=== PATIENT | male | born 1965 | race Two or more races ===

== ENCOUNTER 2017-05-23 19:25 | Emergency (ER) | payer MEDICARE, SELFPAY ==
[~2017-05-23] VITALS: Ht 162.6 cm; Wt 83.3 kg
[2017-05-23] MEDS ORDERED: SODIUM CHLORIDE 0.9% 1,000ML IVBOLUS ONE (20:00)
[2017-05-23] MEDS ORDERED: FAMOTIDINE 20 MG/2 ML IVP ONE (20:00)
[2017-05-23] MEDS ORDERED: SODIUM CHLORIDE FLUSH 10ML SYR IVF ONE (20:00)
[2017-05-23] MEDS ORDERED: ONDANSETRON 2MG/ML, 2ML IVPush ONE (20:00)
[2017-05-23 20:23] LABS: BASOPHILS # (AUTO) 0.02 x10^3/uL (0-0.1); BASOPHILS % (AUTO) 0 % (0-1); EOSINOPHILS # (AUTO) 0.07 x10^3/uL (0-0.4); EOSINOPHILS % (AUTO) 1 % (1-7); LYMPHOCYTES # (AUTO) 1.49 x10^3/uL (1-3.4); LYMPHOCYTES % (AUTO) 27 % (22-44); MD NO; MEAN CORPUSCULAR HEMOGLOBIN 31.1 pg (27.5-34.5); MEAN CORPUSCULAR HGB CONC 33.3 g/dL (33.2-36.2); MEAN CORPUSCULAR VOLUME 93.4 fL (81-97); MEAN PLATELET VOLUME 7.6 fL (7.4-10.4); MONOCYTES # (AUTO) 0.59 x10^3/uL (0.2-0.8); MONOCYTES % (AUTO) 11 % (2-9); NEUTROPHILS # (AUTO) 3.43 x10^3/uL (1.8-6.8); NEUTROPHILS % (AUTO) 61 % (42-75); PLATELET COUNT 319 x10^3/uL (130-400); RED BLOOD COUNT 4.84 x10^6/uL (4.38-5.82); RED CELL DISTRIBUTION WIDTH 14.1 % (9.4-14.8)
[2017-05-23 20:31] LABS: ALANINE AMINOTRANSFERASE 53 U/L (12-78); ALBUMIN 3.8 g/dL (3.4-5.0); ANION GAP 8 mmol/L (5-15); CALCIUM 8.2 mg/dL (8.5-10.1); CHLORIDE 108 mmol/L (98-107); CREATININE 0.79 mg/dL (0.7-1.3)
[2017-05-23 20:33] LABS: ALKALINE PHOSPHATASE 93 U/L (45-117); BILIRUBIN,TOTAL 0.6 mg/dL (0.2-1.0); TOTAL PROTEIN 7.7 g/dL (6.4-8.2)
[2017-05-23] MEDS ORDERED: ONDANSETRON 2MG/ML, 2ML ONE (20:47)
[2017-05-23] MEDS ORDERED: FAMOTIDINE 20 MG/2 ML ONE (20:48)
[2017-05-23 20:54] LABS: MICROSCOPIC NOT IND
[2017-05-23 20:58] LABS: CULTURE INDICATED? NO
[2017-05-23 21:45] VITALS: BP 126/84
== END 2017-05-23 22:08 | disposition home or self-care (01) ==
LOC: ED 22:00
DX: R10.84 Generalized abdominal pain (principal); R19.7 Diarrhea, unspecified
CPT/HCPCS: 36415; 74021; 80053; 81003; 83690; 85025; 96361; 96374; 96375; 99285; J2405; J7030; S0028

== ENCOUNTER 2017-05-24 13:02 | Emergency (ER) | payer MEDICARE ==
[~2017-05-24] VITALS: Ht 167.6 cm; Wt 83.2 kg
[2017-05-24 14:10] VITALS: BP 112/68
[2017-05-24] MEDS ORDERED: SODIUM CHLORIDE 0.9% 1,000ML IVBOLUS ONE (15:00)
[2017-05-24] MEDS ORDERED: FAMOTIDINE 20 MG/2 ML IVP ONE (15:00)
[2017-05-24] MEDS ORDERED: ONDANSETRON 2MG/ML, 2ML IVPush ONE (15:00)
[2017-05-24] MEDS ORDERED: SODIUM CHLORIDE FLUSH 10ML SYR IVF ONE (15:00)
[2017-05-24] MEDS ORDERED: MORPHINE SULFATE 4 MG/ML, 1ML IVPush PRN (15:00)
[2017-05-24 15:12] LABS: MICROSCOPIC NOT IND
[2017-05-24 15:15] LABS: CULTURE INDICATED? NO
[2017-05-24 15:16] LABS: ALBUMIN 3.5 g/dL (3.4-5.0); ANION GAP 7 mmol/L (5-15); CALCIUM 8.4 mg/dL (8.5-10.1); CHLORIDE 109 mmol/L (98-107)
[2017-05-24 15:17] LABS: BASOPHILS # (AUTO) 0.01 x10^3/uL (0-0.1); BASOPHILS % (AUTO) 0 % (0-1); EOSINOPHILS # (AUTO) 0.08 x10^3/uL (0-0.4); EOSINOPHILS % (AUTO) 2 % (1-7); LYMPHOCYTES # (AUTO) 1.24 x10^3/uL (1-3.4); LYMPHOCYTES % (AUTO) 28 % (22-44); MD NO; MEAN CORPUSCULAR HEMOGLOBIN 31.1 pg (27.5-34.5); MEAN CORPUSCULAR HGB CONC 33.1 g/dL (33.2-36.2); MEAN CORPUSCULAR VOLUME 94.2 fL (81-97); MEAN PLATELET VOLUME 7.1 fL (7.4-10.4); MONOCYTES # (AUTO) 0.47 x10^3/uL (0.2-0.8); MONOCYTES % (AUTO) 11 % (2-9); NEUTROPHILS % (AUTO) 59 % (42-75); PLATELET COUNT 294 x10^3/uL (130-400); RED BLOOD COUNT 4.54 x10^6/uL (4.38-5.82); RED CELL DISTRIBUTION WIDTH 13.9 % (9.4-14.8)
[2017-05-24] MEDS ORDERED: MORPHINE SULFATE 4 MG/ML, 1ML ONE (15:19)
[2017-05-24] MEDS ORDERED: ONDANSETRON 2MG/ML, 2ML ONE (15:19)
[2017-05-24] MEDS ORDERED: FAMOTIDINE 20 MG/2 ML ONE (15:19)
[2017-05-24 15:21] LABS: ALANINE AMINOTRANSFERASE 49 U/L (12-78); ALKALINE PHOSPHATASE 83 U/L (45-117); BILIRUBIN,TOTAL 0.5 mg/dL (0.2-1.0); CREATININE 0.83 mg/dL (0.7-1.3); TOTAL PROTEIN 6.9 g/dL (6.4-8.2)
[2017-05-24 15:48] LABS: CLOSTRIDIUM DIFFICILE ANTIGEN NEGATIVE; CLOSTRIDIUM DIFFICILE TOXIN NEGATIVE (Negative)
== END 2017-05-24 16:55 | disposition home or self-care (01) ==
LOC: ED 16:09
DX: K52.9 Noninfective gastroenteritis and colitis, unspecified (principal)
CPT/HCPCS: 36415; 80053; 81003; 83690; 85025; 87324; 89055; 93005; 96374; 96375; 99285; J2405; J7030; S0028

== ENCOUNTER 2019-09-16 16:54 | Emergency (ER) | payer MEDICARE, MEDICAID ==
[~2019-09-16] VITALS: Ht 162.6 cm; Wt 82.0 kg
[~2019-09-16 16:54] MED LIST: DOCU100C33 PO; NAPR-685 PO; OMEP-110 PO; PROC10TA2 PO; TRAZ-175 PO
--- NOTE | 2019-09-16 17:27 | NUR ---
THIS IS A 53 YO MALE COMING IN WITH C/O DIFFUSE ALL OVER ABD PAIN/CRAMPING IN ALL QUADRANTS "IT'S BEEN HAPPENING FOR TWO YEARS SINCE I HAD FOOD POISONING, LOTS OF COMPLICATIONS, MORE AND MORE COMPLICATIONS. I HAS HARD TIME GOING PEE AND POOP, IT HURTS TO PEE AND HAVING HARD TIME POOPING". LAST BM 0200 TODAY. SPO2 AND BP MONITORING IN PLACE, VENKATA, CHARISMA AT THIS TIME. CALL LIGHT IN REACH.
[2019-09-16] MEDS ORDERED: SODIUM CHLORIDE FLUSH 10ML SYR IVF ONE (17:30)
[2019-09-16] MEDS ORDERED: ONDANSETRON 2MG/ML, 2ML ONE (17:30)
[2019-09-16] MEDS ORDERED: ONDANSETRON 2MG/ML, 2ML IVPush ONE (17:30)
--- NOTE | 2019-09-16 17:35 | NUR ---
PATIENT MEDICATED PER EMAR. PIV PLACED, LABS DRAWN. PATIENT GIVEN URINAL TO USE FOR UA
[2019-09-16 17:58] LABS: BASOPHILS # (AUTO) 0.03 x10^3/uL (0-0.1); BASOPHILS % (AUTO) 0 % (0-1); EOSINOPHILS # (AUTO) 0.19 x10^3/uL (0-0.4); EOSINOPHILS % (AUTO) 3 % (1-7); LYMPHOCYTES # (AUTO) 2.41 x10^3/uL (1-3.4); LYMPHOCYTES % (AUTO) 32 % (22-44); MD NO; MEAN CORPUSCULAR HEMOGLOBIN 31.6 pg (27.5-34.5); MEAN CORPUSCULAR HGB CONC 33.3 g/dL (33.2-36.2); MEAN CORPUSCULAR VOLUME 94.6 fL (81-97); MEAN PLATELET VOLUME 8.2 fL (7.4-10.4); MONOCYTES # (AUTO) 0.49 x10^3/uL (0.2-0.8); MONOCYTES % (AUTO) 7 % (2-9); NEUTROPHILS # (AUTO) 4.36 x10^3/uL (1.8-6.8); NEUTROPHILS % (AUTO) 58 % (42-75); PLATELET COUNT 307 x10^3/uL (130-400); RED BLOOD COUNT 4.63 x10^6/uL (4.38-5.82); RED CELL DISTRIBUTION WIDTH 14.4 % (9.4-14.8)
[2019-09-16 18:09] LABS: ALANINE AMINOTRANSFERASE 52 U/L (12-78); ALBUMIN 3.5 g/dL (3.4-5.0); ANION GAP 7 mmol/L (5-15); CALCIUM 8.6 mg/dL (8.5-10.1); CHLORIDE 109 mmol/L (98-107); CREATININE 0.99 mg/dL (0.7-1.3)
[2019-09-16 18:11] LABS: ALKALINE PHOSPHATASE 113 U/L (45-117); BILIRUBIN,TOTAL 0.4 mg/dL (0.2-1.0); TOTAL PROTEIN 7.2 g/dL (6.4-8.2)
--- NOTE | 2019-09-16 18:30 | NUR ---
PATIENT TO CT
[2019-09-16] MEDS ORDERED: PROMETHAZINE 25 MG/ML, 1ML ONE ×2 (18:53)
--- NOTE | 2019-09-16 18:57 | NUR ---
PATIENT MEDICATED PER EMAR FOR RECURRENT N/V
[2019-09-16] MEDS ORDERED: PROMETHAZINE 25 MG/ML, 1ML IM ONE (19:00)
--- NOTE | 2019-09-16 19:54 | NUR ---
UA COLLECTED AND SENT TO LAB
[2019-09-16 20:02] VITALS: BP 143/91
[2019-09-16 20:05] LABS: MICROSCOPIC NOT IND
--- NOTE | 2019-09-16 21:16 | NUR ---
PATIENT READY FOR DISCHARGE. REFUSING TO GET UP AND OUT OF GURNEY TO GET DRESSED. SECURITY CALLED. TAXI EN ROUTE
[2019-09-16] MEDS ORDERED: OMNIPAQUE 350 MG/ML, 100ML BOTTLE ONE (21:59)
== END 2019-09-16 22:45 | disposition home or self-care (01) ==
LOC: ED 22:37
DX: R10.84 Generalized abdominal pain (principal); R11.2 Nausea with vomiting, unspecified; I10 Essential (primary) hypertension; F17.210 Nicotine dependence, cigarettes, uncomplicated
CPT/HCPCS: 36415; 74177; 80053; 81003; 83690; 85025; 96372; 96374; 99285; J2405; J2550; Q9967

== ENCOUNTER 2019-09-20 09:51 | Emergency (ER) | payer MEDICARE ==
[~2019-09-20] VITALS: Ht 162.6 cm; Wt 90.0 kg
[2019-09-20 09:53] VITALS: BP 129/87
--- NOTE | 2019-09-20 11:44 | NUR ---
Patient given discharge instructions and they have confirmed that they understand the instructions. Patient ambulatory with steady gait.
== END 2019-09-20 11:45 | disposition home or self-care (01) ==
LOC: ED 10:51
DX: I80.8 Phlebitis and thrombophlebitis of other sites (principal); I10 Essential (primary) hypertension
CPT/HCPCS: 99282

== ENCOUNTER 2019-09-22 10:46 | Emergency (ER) | payer MEDICARE, MEDICAID ==
[~2019-09-22] VITALS: Ht 162.6 cm; Wt 82.0 kg
[2019-09-22 10:51] VITALS: BP 142/100
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
== END 2019-09-22 12:07 | disposition home or self-care (01) ==
LOC: ED 11:21
DX: S50.12XA Contusion of left forearm, initial encounter (principal); I10 Essential (primary) hypertension; X58.XXXA Exposure to other specified factors, initial encounter; Y93.89 Activity, other specified; Y92.89 Other specified places as the place of occurrence of the external cause; Y99.8 Other external cause status
CPT/HCPCS: 99281

== ENCOUNTER 2019-11-14 14:53 | Emergency (ER) | payer MEDICAID, MEDICARE ==
[~2019-11-14] VITALS: Ht 162.6 cm; Wt 81.8 kg
[2019-11-14 14:55] VITALS: BP 165/97
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
[2019-11-14] MEDS ORDERED: CEPHALEXIN 500 MG CAPSULE PO ONE (15:30)
[2019-11-14] MEDS ORDERED: SULFAMETH./TRIMETHOPRIM DS 800MG/160MG TABLET PO ONE (15:30)
[2019-11-14] MEDS ORDERED: SULFAMETH./TRIMETHOPRIM DS 800MG/160MG TABLET ONE (15:33)
[2019-11-14] MEDS ORDERED: CEPHALEXIN 500 MG CAPSULE ONE (15:33)
== END 2019-11-14 16:01 | disposition home or self-care (01) ==
LOC: ED 15:30
DX: L03.115 Cellulitis of right lower limb (principal); I10 Essential (primary) hypertension; Z87.891 Personal history of nicotine dependence
CPT/HCPCS: 99283

== ENCOUNTER 2019-11-21 16:09 | Emergency (ER) | payer MEDICARE, MEDICAID ==
--- NOTE | 2019-11-21 17:41 | NUR ---
SOFTWARE WRITER: PT WALKED BACK FROM LOBBY TO ROOM AT THIS TIME.
[2019-11-21] MEDS ORDERED: NEOSPORIN OINT. PKT 1 PACKET ONE (18:13)
--- NOTE | 2019-11-21 18:46 | NUR ---
REPORT TO COSMO
[2019-11-21 19:09] VITALS: BP 152/88
== END 2019-11-21 19:11 | disposition home or self-care (01) ==
LOC: ED 18:26
DX: S80.811A Abrasion, right lower leg, initial encounter (principal); L03.115 Cellulitis of right lower limb; I10 Essential (primary) hypertension; Z87.891 Personal history of nicotine dependence; X58.XXXA Exposure to other specified factors, initial encounter; Y93.89 Activity, other specified; Y92.488 Other paved roadways as the place of occurrence of the external cause; Y99.8 Other external cause status
CPT/HCPCS: 99283

== ENCOUNTER 2019-12-02 12:25 | Emergency (ER) | payer MEDICARE, MEDICAID ==
[~2019-12-02] VITALS: Ht 162.6 cm; Wt 82.0 kg
--- NOTE | 2019-12-02 13:42 | NUR ---
TO IVON FROM LOBBY
[2019-12-02] MEDS ORDERED: ONDANSETRON 2MG/ML, 2ML ONE (13:45)
[2019-12-02] MEDS ORDERED: ONDANSETRON ODT 4 MG ONE (13:46)
[2019-12-02] MEDS ORDERED: ONDANSETRON ODT 4 MG PO PRN (14:00)
[2019-12-02 14:04] LABS: BASOPHILS # (AUTO) 0.04 x10^3/uL (0-0.1); BASOPHILS % (AUTO) 1 % (0-1); EOSINOPHILS # (AUTO) 0.12 x10^3/uL (0-0.4); EOSINOPHILS % (AUTO) 2 % (1-7); LYMPHOCYTES # (AUTO) 2.11 x10^3/uL (1-3.4); LYMPHOCYTES % (AUTO) 32 % (22-44); MD NO; MEAN CORPUSCULAR HEMOGLOBIN 32.2 pg (27.5-34.5); MEAN CORPUSCULAR HGB CONC 33.8 g/dL (33.2-36.2); MEAN CORPUSCULAR VOLUME 95.3 fL (81-97); MEAN PLATELET VOLUME 7.4 fL (7.4-10.4); MONOCYTES # (AUTO) 0.41 x10^3/uL (0.2-0.8); MONOCYTES % (AUTO) 6 % (2-9); NEUTROPHILS # (AUTO) 3.85 x10^3/uL (1.8-6.8); NEUTROPHILS % (AUTO) 59 % (42-75); PLATELET COUNT 298 x10^3/uL (130-400); RED CELL DISTRIBUTION WIDTH 14.3 % (9.4-14.8)
[2019-12-02 14:10] LABS: ALANINE AMINOTRANSFERASE 54 U/L (12-78); ALBUMIN 3.5 g/dL (3.4-5.0); ANION GAP 6 mmol/L (5-15); CALCIUM 8.3 mg/dL (8.5-10.1); CHLORIDE 109 mmol/L (98-107); CREATININE 0.83 mg/dL (0.7-1.3)
[2019-12-02 14:12] LABS: ALKALINE PHOSPHATASE 90 U/L (45-117); BILIRUBIN,TOTAL 0.6 mg/dL (0.2-1.0); TOTAL PROTEIN 7.1 g/dL (6.4-8.2)
[2019-12-02 14:49] VITALS: BP 124/74
== END 2019-12-02 15:13 | disposition home or self-care (01) ==
LOC: ED 15:12
DX: R10.84 Generalized abdominal pain (principal); R11.2 Nausea with vomiting, unspecified; R19.7 Diarrhea, unspecified
CPT/HCPCS: 36415; 80053; 83690; 85025; 99283

== ENCOUNTER 2019-12-11 16:18 | Emergency (ER) | payer MEDICAID, MEDICARE ==
[~2019-12-11] VITALS: Ht 162.6 cm; Wt 82.0 kg
[2019-12-11 16:28] VITALS: BP 152/101
--- NOTE | 2019-12-11 17:07 | NUR ---
PA STUDENT AT BEDSIDE EVALUATING AT THIS TIME.
--- NOTE | 2019-12-11 18:50 | NUR ---
REPORT GIVEN TO GEE HERNANDEZ.
== END 2019-12-11 19:23 | disposition home or self-care (01) ==
LOC: ED 18:11
DX: L03.115 Cellulitis of right lower limb (principal); I10 Essential (primary) hypertension; G89.29 Other chronic pain; Z87.891 Personal history of nicotine dependence
CPT/HCPCS: 99284

== ENCOUNTER 2020-01-01 08:37 | Emergency (ER) | payer MEDICARE, MEDICAID ==
[~2020-01-01] VITALS: Ht 162.6 cm; Wt 82.0 kg
[2020-01-01 09:04] VITALS: BP 144/102
--- NOTE | 2020-01-01 09:51 | NUR ---
PT CAME IN CO OF AN OLD WOUND THAT APPEARS TO BE ALMOST FULLY HEALED. AREA IS ABOUT THE SIZE OF A SILVER DOLLAR AND IS PINK. PT STATES ITS STILL VERY PAINFUL. PT WAS TREATED FOR CELLULITIS 2 WEEKS AGO AND FINISHED COURSE OF ABX.
[2020-01-01] MEDS ORDERED: NEOSPORIN OINT. PKT 1 PACKET ONE (09:58)
== END 2020-01-01 10:18 | disposition home or self-care (01) ==
LOC: EDSEX 10:08 → ED 10:08
DX: S80.811A Abrasion, right lower leg, initial encounter (principal); I10 Essential (primary) hypertension; Z87.891 Personal history of nicotine dependence; X58.XXXA Exposure to other specified factors, initial encounter; Y93.89 Activity, other specified; Y92.89 Other specified places as the place of occurrence of the external cause; Y99.8 Other external cause status
CPT/HCPCS: 99282

== ENCOUNTER 2020-01-28 11:22 | Emergency (ER) | payer MEDICARE, MEDICAID ==
[~2020-01-28] VITALS: Ht 167.6 cm; Wt 82.0 kg
[2020-01-28 11:24] VITALS: BP 152/97
--- NOTE | 2020-01-28 12:03 | NUR ---
LABS BEING DRAWN
[2020-01-28 12:25] LABS: BASOPHILS % (AUTO) 0 % (0-1); EOSINOPHILS % (AUTO) 2 % (1-7); LYMPHOCYTES % (AUTO) 34 % (22-44); MONOCYTES % (AUTO) 6 % (2-9); NEUTROPHILS % (AUTO) 58 % (42-75); PLATELET COUNT 320 x10^3/uL (130-400)
--- NOTE | 2020-01-28 12:26 | NUR ---
US AT BEDSIDE
[2020-01-28 12:27] LABS: ALANINE AMINOTRANSFERASE 65 U/L (12-78); ALBUMIN 3.8 g/dL (3.4-5.0); ANION GAP 5 mmol/L (5-15); CHLORIDE 107 mmol/L (98-107)
[2020-01-28 12:28] LABS: ALKALINE PHOSPHATASE 103 U/L (45-117); BILIRUBIN,TOTAL 0.6 mg/dL (0.2-1.0); MD NO; TOTAL PROTEIN 7.2 g/dL (6.4-8.2)
[2020-01-29 09:38] LABS: CREATININE 0.82 mg/dL (0.7-1.3); RED BLOOD COUNT 4.76 x10^6/uL (4.38-5.82)
[2020-01-29 09:39] LABS: MEAN CORPUSCULAR HEMOGLOBIN 31.7 pg (27.5-34.5); MEAN CORPUSCULAR HGB CONC 33.9 g/dL (33.2-36.2); RED CELL DISTRIBUTION WIDTH 13.8 % (9.4-14.8)
== END 2020-01-28 13:19 | disposition home or self-care (01) ==
LOC: EDSEX 11:22 → ED 12:35
DX: M79.661 Pain in right lower leg (principal); M54.9 Dorsalgia, unspecified
CPT/HCPCS: 36415; 80053; 85025; 99285

== ENCOUNTER 2020-06-17 09:00 | Emergency (ER) | payer MEDICARE, MEDICAID ==
[~2020-06-17] VITALS: Ht 162.6 cm; Wt 82.0 kg
--- NOTE | 2020-06-17 09:12 | NUR ---
product applications scientist: attempted to call pt for triage, no answer in lobby
[2020-06-17 09:14] VITALS: BP 160/102
--- NOTE | 2020-06-17 09:28 | NUR ---
rn neurology: pt refused to step on scale in triage, pt argumentative with staff, pt swearing
--- NOTE | 2020-06-17 09:30 | NUR ---
home performance laborer: pt repeatedly removing mask in triage after education regarding wearing of mask. pt states "you need to respect me"
--- NOTE | 2020-06-17 09:39 | NUR ---
PT LAYING ON FORREST TROTTER/VENKATA. AT . CALL LIGHT WITHIN REACH
--- NOTE | 2020-06-17 09:54 | NUR ---
Patient given discharge instructions and they have confirmed that they understand the instructions. Patient ambulatory with steady gait.
== END 2020-06-17 09:55 | disposition home or self-care (01) ==
LOC: ED 09:49
DX: H57.89 Other specified disorders of eye and adnexa (principal)
CPT/HCPCS: 99281

== ENCOUNTER 2020-09-08 10:03 | Emergency (ER) | payer MEDICARE, MEDICAID ==
[~2020-09-08] VITALS: Ht 162.6 cm; Wt 78.0 kg
--- NOTE | 2020-09-08 10:30 | NUR ---
head up operator at doorway for pt safety. flag football coach aware that pt is claiming he may have lice and has a wheelchair loaded with many items unable to be removed and isolated for containment and therefore left in room. Garage doors pulled down and head checked and no lice noted.
[2020-09-08 10:34] VITALS: BP 150/88
--- NOTE | 2020-09-08 11:05 | NUR ---
PA at bedside for exam now.
[2020-09-08] MEDS ORDERED: ERYT1OIN5 OP (11:14)
--- NOTE | 2020-09-08 11:30 | NUR ---
storeroom attendant present at bedside for assessment at this time.
== END 2020-09-08 12:04 | disposition home or self-care (01) ==
LOC: ED 10:21
DX: Z00.8 Encounter for other general examination (principal); I10 Essential (primary) hypertension
CPT/HCPCS: 99283